=== PATIENT | female | born 2005 | race Caucasian/White ===

== ENCOUNTER 2025-01-25 09:19 | Inpatient (IN) | payer MEDICAID ==
[~2025-01-25] VITALS: Ht 157.5 cm; Wt 110.0 kg
[2025-01-25] MEDS ORDERED: BACI28.410 TP (09:31)
[2025-01-25] MEDS: SODIUM CHLORIDE 0.9% 1,000 ML IV ONE (09:48)
[2025-01-25] MEDS: KETOROLAC TROMETHAMINE 30 MG/ML VIAL IVP ONE (09:49)
[2025-01-25] MEDS: ACETAMINOPHEN 500 MG TABLET PO ONE (09:49)
[2025-01-25 09:55] LABS: APPEARANCE,URINE CLEAR (CLEAR); GLUCOSE, URINE (UA) NEGATIVE (NEGATIVE); LEUKOCYTE ESTERASE ,URINE LARGE (NEGATIVE); NITRATE,URINE NEGATIVE (NEGATIVE); OCCULT BLOOD,URINE LARGE (NEGATIVE); SPECIFIC GRAVITIY, URINE 1.004 (1.003-1.030)
[2025-01-25 09:57] LABS: PLATELET COUNT (AUTO) 268 K/uL (150-450); RED BLOOD CELL COUNT(AUTO) 4.34 MIL/uL (4.00-5.20); RED CELL DISTRIBUTION WIDTH 12.9 % (11.5-14.5); WHITE BLOOD COUNT (AUTO) 14.2 K/uL (4.5-11.0)
[2025-01-25 10:01] LABS: CALCIUM, TOTAL 8.7 mg/dL (8.8-10.5); CREATININE 1.05 mg/dL (0.60-1.30); GLOMERULAR FILTR. RATE CALC > 60 mL/min (>60); GLUCOSE,RANDOM 128 mg/dL (70-110); SODIUM SERUM 136 mmol/L (136-145); UREA NITROGEN, BLOOD 10 mg/dL (7-18)
[2025-01-25 10:08] LABS: ASPARTATE AMINOTRANSFERASE 27.0 U/L (15-37); HCG,QUANTITATIVE 2.0 mIU/mL (0-6); TOTAL PROTEIN, SERUM 7.1 g/dL (6.4-8.2)
[2025-01-25 10:13] LABS: SQUAMOUS EPITHELIAL CELL,UR Few /LPF (None Seen)
[2025-01-25] MEDS ORDERED: IOHEXOL 350 MG/ML 100 ML VIAL ONE (10:16)
[2025-01-25] MEDS ORDERED: SODIUM CHLORIDE 0.9% 100 ML ONE (10:16)
[2025-01-25] MEDS: CefTRIAXone 1 GM/DEXTROSE 50 ML IV ONE (11:18)
[2025-01-25] MEDS: MORPHINE SULFATE 2 MG/ML SYRINGE IVP ONE (12:27)
[2025-01-25] MEDS ORDERED: ACETAMINOPHEN 325 MG TABLET PO PRN (12:30)
[2025-01-25] MEDS ORDERED: ZOLPIDEM TARTRATE 5 MG TABLET PO PRN (12:30)
[2025-01-25] MEDS ORDERED: ONDANSETRON HCL 4 MG/2 ML VIAL IVP PRN (12:30)
[2025-01-25 15:21] VITALS: BP 123/76; PULSE 76; RESP 18; TEMP 97.3; O2SAT 95
[2025-01-25] MEDS: OxyCODONE HCL/ACETAMINOPHEN 5-325 MG TABLET PO PRN (15:36)
[2025-01-25] MEDS: PHENAZOPYRIDINE HCL 100 MG TABLET PO SCH (20:12)
[2025-01-25] MEDS: DOCUSATE SODIUM 100 MG CAPSULE PO SCH (20:12)
[2025-01-25 20:14] VITALS: BP 105/62; PULSE 75; RESP 19; TEMP 97.7; O2SAT 97
[2025-01-25 23:42] VITALS: BP 108/69; PULSE 67; RESP 18; O2SAT 95
[2025-01-26 04:18] VITALS: BP 102/60; PULSE 77; RESP 19; TEMP 97.7; O2SAT 96
[2025-01-26 08:00] VITALS: BP 107/65; PULSE 88; RESP 18; TEMP 98.1; O2SAT 97
[2025-01-26 09:26] LABS: PLATELET COUNT (AUTO) 239 K/uL (150-450); RED BLOOD CELL COUNT(AUTO) 4.09 MIL/uL (4.00-5.20); RED CELL DISTRIBUTION WIDTH 13.2 % (11.5-14.5); WHITE BLOOD COUNT (AUTO) 8.6 K/uL (4.5-11.0)
[2025-01-26] MEDS ORDERED: SODIUM CHLORIDE 0.9% 500 ML IV ONE (12:04)
[2025-01-26] MEDS: CefTRIAXone 1 GM/DEXTROSE 50 ML IV SCH (12:05)
[2025-01-26 16:28] VITALS: BP 124/71; PULSE 77; RESP 18; TEMP 91.6; O2SAT 95
[2025-01-26] MEDS: MAGNESIUM HYDROXIDE SUSPENSION 30 ML UDCUP PO PRN (17:44)
[2025-01-26 19:53] VITALS: BP 115/74; PULSE 77; RESP 18; TEMP 98.1; O2SAT 95
[2025-01-27 05:10] VITALS: BP 105/66; PULSE 73; RESP 18; TEMP 98.1; O2SAT 93
[2025-01-27 08:00] VITALS: BP 109/66; PULSE 72; RESP 18; TEMP 97.9; O2SAT 97
[2025-01-27] MEDS ORDERED: LEVO750T68 PO (13:56)
== END 2025-01-27 16:40 | disposition home or self-care (01) | DRG 463 ==
LOC: EMS 09:29 → EDH 12:28 → 4E 15:14
PROVIDERS: ADMIT Internal Medicine; ATTEND Internal Medicine
DX: N12 Tubulo-interstitial nephritis, not specified as acute or chronic (principal); D17.71 Benign lipomatous neoplasm of kidney; E66.01 Morbid (severe) obesity due to excess calories; N83.202 Unspecified ovarian cyst, left side; Z68.41 Body mass index [BMI] 40.0-44.9, adult; Z90.49 Acquired absence of other specified parts of digestive tract
CPT/HCPCS: 74177; 76770; 76856; 80048; 80076; 81001; 83690; 84702; 85025; 87077; 87086; 87186; 96361; 96365; 96375; 99285; G0378; J0696; J1885; J2270; J7040; J7050; 36415-L1; 36415-TC